=== PATIENT | female | born 1990 ===

== ENCOUNTER 2022-03-03 08:34 | Inpatient (IN) | payer BC ==
[~2022-03-03] VITALS: Ht 155 cm; Wt 59.5 kg
[2022-03-09] VITALS (20 sets, daily range): BP systolic 107–136; BP diastolic 56–88; PULSE 60–114; TEMP 97.6–98.8
--- NOTE | 2022-03-09 06:15 | NUR ---
PT ARRIVES THIS MORNING AMBULATORY TO FLOOR FOR SCHEDULED REPEAT CSECTION IN STABLE CONDITION. DENIES LOF. REPORTS POSITIVE MOVEMENT. DENIES CONTRACTIONS AT THIS TIME. VITAL SIGNS STABLE. CATEGORY 1 EFM TRACING.
[2022-03-09 06:20] LABS: BASO % 0.6 % (0.0-2.0); EOS # 0.1 K/mm3 (0.0-0.7); EOS % 0.7 % (0.0-4.0); GRAN # 4.4 K/mm3 (1.4-6.5); HEMATOCRIT 32.6 % (37.0-47.0); HEMOGLOBIN 11.4 g/dl (12.5-16.0); LYMPH # 2.1 K/mm3 (1.2-3.4); LYMPH % 28.9 % (20.0-51.0); MEAN CELL VOLUME 92 fl (80.0-100.0); MEAN CORPUSCULAR HEMOGLOBIN 32 pg (27-31); MEAN CORPUSCULAR HGB CONC 35 g/dl (33.0-37.0); MEAN PLATELET VOLUME 9.9 fl (7.4-10.4); MONO # 0.6 K/mm3 (0.1-0.6); MONO % 8.2 % (1.7-9.3); PLATELET COUNT 236 K/mm3 (130-400); RED BLOOD COUNT 3.55 M/mm3 (4.10-5.30); REDCELL DISTRIBUTION WIDTH-CV 13.3 % (11.5-14.5)
[2022-03-09] MEDS ORDERED: PERCOCET 325 MG1 TA2 PO (08:21)
[2022-03-09] MEDS ORDERED: MOTRIN 800800 MG/TAB PO (08:21)
--- NOTE | 2022-03-09 09:10 | NUR ---
PT DISCHARGED FROM PACU AT THIS TIME TO MENEZES IN STABLE CONDITION. VITAL SIGNS STABLE. LOCHIA SCANT. FUNDUS FIRM AT UMBILICUS. FULLY ALERT AND ORIENTED. ARANGO DRAINING CLEAR YELLOW URINE. PT DENIES QUESTIONS OR CONCERNS. WILL CONTINUE WITH CARES PER PROTOCOL.
--- NOTE | 2022-03-09 14:04 | NUR ---
REPORT TO MINISTERIO BETHEA AT THIS TIME
[2022-03-10 04:00] VITALS: BP 111/67; PULSE 84; TEMP 97.9
--- NOTE | 2022-03-10 06:39 | NUR ---
BEDSIDE REPORT DECLINED, REPORT RECEIVED FROM OFF GOING RNYARY. CARE TAKEN OVER BY THIS RN.
[2022-03-10 07:44] VITALS: BP 126/75; PULSE 93; TEMP 98.3
--- NOTE | 2022-03-10 11:25 | NUR ---
Initial visit; Parents thanked [employer] Supervisor for offering congratulaations and God's blessings for the of their daughter. M[employer] House Supervisor thanked family for choosing [facility].
[2022-03-10 17:27] VITALS: BP 117/58; PULSE 93; TEMP 98.9
[2022-03-10 21:00] VITALS: BP 118/69; PULSE 87; TEMP 98.9
[2022-03-11 07:10] VITALS: BP 125/68; PULSE 96; TEMP 98.6
--- NOTE | 2022-03-11 12:58 | NUR ---
PT IN STABLE CONDIITON THROUGHOUT MORNING. LOCHIA SCANT. FUNDUS FIRM. NO CLOTS NOTED. VITAL SIGNS STABLE. ALL DC PAPERWORK REVIEWED AND UNDERSTOOD AT THIS TIME. FOB OF BABY GATHERING BELONGINGS, DENIES NEED FOR HELP. PT INFANT AND THEN REQUESTING TO DC FROM UNIT.
[2022-03-11 13:04] VITALS: BP 111/68; PULSE 64; TEMP 98.4
== END 2022-03-11 13:20 | disposition home or self-care (01) | DRG 788 ==
LOC: OB 03-09 05:31
PROVIDERS: ADMIT Obstetrics & Gynecology
PROC: 10D00Z1 Extraction of Products of Conception, Low, Open Approach (ICD-10-PCS; principal; 2022-03-09)
DX: O34.211 Maternal care for low transverse scar from previous cesarean delivery (principal); Z37.0 Single live birth; Z3A.39 39 weeks gestation of pregnancy
CPT/HCPCS: J0690; J1100; J1885; J2405; J2590; J2765; J3010; J7120